=== PATIENT | male | born 1945 | race Caucasian/White ===

== ENCOUNTER 2018-05-20 20:40 | Inpatient (IN) | payer MEDICARE, OTHER ==
[~2018-05-20] VITALS: Ht 177.8 cm; Wt 70.5 kg
[2018-05-20] MEDS ORDERED: IV NORMAL SALINE 500 ML BAG IV ONE (21:00)
[2018-05-20 21:11] LABS: BASOPHILS % (AUTO) 0.2 % (0.0-2.0); EOSINOPHILS # (AUTO) 0.3 K/uL (0.0-0.7); HEMATOCRIT 22.7 % (36.7-47.1); LYMPHOCYTES # (AUTO) 0.7 K/uL (20.0-40.0); LYMPHOCYTES % (AUTO) 6.3 % (20.5-51.5); MEAN CORPUSCULAR HEMOGLOBIN 22.3 uug (23.8-33.4); MEAN CORPUSCULAR HGB CONC 32 g/dL (32.5-36.3); MEAN CORPUSCULAR VOLUME 70.8 fL (73.0-96.2); MONOCYTES # (AUTO) 0.8 K/uL (2.0-10.0); MONOCYTES % (AUTO) 7.3 % (0.0-11.0); NEUTROPHILS # (AUTO) 9.3 K/uL (1.8-8.9); NEUTROPHILS % (AUTO) 83.2 % (38.5-71.5); PLATELET COUNT (AUTO) 377 K/uL (152-348); RED BLOOD CELL COUNT(AUTO) 3.21 MIL/uL (4.06-5.63); WHITE BLOOD COUNT (AUTO) 11.2 K/uL (3.6-10.2)
--- NOTE | 2018-05-20 21:12 | NUR ---
PT IN ROUTE TO CT IN [facility] WITH TRANSPORTER
[2018-05-20 21:18] LABS: HEMOGLOBIN 7.2 g/dL (12.5-16.3)
[2018-05-20 21:19] LABS: CARBON DIOXIDE 27 mmol/L (21-32); CHLORIDE 105 mmol/L (98-107); CREATININE 1.3 mg/dL (0.6-1.3); GLUCOSE 99 mg/dL (74-106); POTASSIUM 3.7 mmol/L (3.5-5.1); UREA NITROGEN, BLOOD 21 mg/dL (7-18)
[2018-05-20 21:24] LABS: ALANINE AMINOTRANSFERASE 32 U/L (16-63); ALKALINE PHOSPHATASE 66 U/L (50-136); ASPARTATE AMINOTRANSFERASE 15 U/L (15-37); BILIRUBIN,DIRECT 0.1 mg/dL (0.0-0.2); BILIRUBIN,TOTAL 0.4 mg/dL (0.2-1.0); TOTAL PROTEIN, SERUM 6.2 g/dL (6.4-8.2)
--- NOTE | 2018-05-20 21:35 | NUR ---
PT RETURNS FROM CT IN [facility] WITH TRANSPORTER
[2018-05-20 21:43] LABS: BAND % (MANUAL) 3 % (0-10); EOSINOPHILS % (MANUAL) 4 % (0-8); LYMPHOCYTES % (MANUAL) 7 % (20-40); MONOCYTES % (MANUAL) 5 % (2-10); NEUTROPHILS % (MANUAL) 81 % (42-75)
--- NOTE | 2018-05-20 22:07 | NUR ---
REPORT GIVEN TO TELEMETRY NURSE, JULIEN COPELAND
[2018-05-20 22:30] VITALS: BP 112/56
--- NOTE | 2018-05-20 22:30 | NUR ---
RECEIVED REPORT FROM ER NURSE, JULIEN MARCOS. PT ARRIVED ON TELE FLOOR VIA GURNEY. NSR ON TELE. PT STABLE AT THIS TIME. NO COMPLAINTS OF PAIN, C/P, SOB, N/V. WILL CONTINUE TO MONITOR.
--- NOTE | 2018-05-20 22:30 | NUR ---
Pt. admitted to TELEMETRY, under care of Dr. CROFT Belongs List completed
--- NOTE | 2018-05-20 23:00 | NUR ---
MD aware of H/H levels: 7.2/22.7 (L). New orders placed. Will closely monitor.
[2018-05-20 23:58] VITALS: BP_SYST 107; BP_SYST 117; BP_SYST 121; BP_DIAS 55; BP_DIAS 56; BP_DIAS 61
[2018-05-20] MEDS ORDERED: IV NS 1000 ML 1,000 ML IV PRN (23:58)
[2018-05-21] VITALS: BP 107/55
[2018-05-21] MEDS ORDERED: ACETAMINOPHEN 325 MG TABLET PO PRN
[2018-05-21] MEDS ORDERED: ONDANSETRON 4 MG/2 ML VIAL IV PRN
[2018-05-21] MEDS ORDERED: Z GUARD REMEDY PASTE 57 GM TUBE TOP PRN
[2018-05-21] MEDS ORDERED: MAGNESIUM HYDROXIDE 30 ML LIQUID UDC PO PRN
[2018-05-21 00:40] LABS: *OCCULT BLOOD STOOL NEGATIVE (NEGATIVE)
[2018-05-21 04:00] VITALS: BP 102/51
--- NOTE | 2018-05-21 05:41 | NUR ---
No changes t/o shift. Slept t/o shift. Remains A/O x 4. Denies pain or SOB. TELE Sinus Rhythm. IVF infusing on the left hand. Stool/Urine and MRSA swab collected and sent to lab. Skin intact. Noted right Arm surgery incision covered in ENEIDA bandage. Pictures taken and filled to chart. No signs of infection. Fall precautions observed. Room is left clutter free. Bed in low and locked position. Afebrile. All meds given as ordered. All needs met.
[2018-05-21 07:10] LABS: BASOPHILS # (AUTO) 0.1 K/uL (0.0-8.0); BASOPHILS % (AUTO) 0.8 % (0.0-2.0); EOSINOPHILS # (AUTO) 0.3 K/uL (0.0-0.7); EOSINOPHILS % (AUTO) 2.9 % (0.0-7.0); HEMATOCRIT 25.5 % (36.7-47.1); HEMOGLOBIN 7.9 g/dL (12.5-16.3); LYMPHOCYTES # (AUTO) 0.7 K/uL (20.0-40.0); LYMPHOCYTES % (AUTO) 5.7 % (20.5-51.5); MEAN CORPUSCULAR HEMOGLOBIN 22.1 uug (23.8-33.4); MEAN CORPUSCULAR HGB CONC 31 g/dL (32.5-36.3); MONOCYTES % (AUTO) 8.4 % (0.0-11.0); NEUTROPHILS # (AUTO) 9.6 K/uL (1.8-8.9); NEUTROPHILS % (AUTO) 82.2 % (38.5-71.5); PLATELET COUNT (AUTO) 477 K/uL (152-348); RED BLOOD CELL COUNT(AUTO) 3.58 MIL/uL (4.06-5.63); WHITE BLOOD COUNT (AUTO) 11.6 K/uL (3.6-10.2)
[2018-05-21 07:26] LABS: ALANINE AMINOTRANSFERASE 34 U/L (16-63); ALKALINE PHOSPHATASE 76 U/L (50-136); ASPARTATE AMINOTRANSFERASE 15 U/L (15-37); BILIRUBIN,TOTAL 0.3 mg/dL (0.2-1.0); CARBON DIOXIDE 26 mmol/L (21-32); CHLORIDE 109 mmol/L (98-107); CHOLESTEROL 125 mg/dL (<200); CREATININE 1.2 mg/dL (0.6-1.3); GLUCOSE 95 mg/dL (74-106); HDL CHOLESTEROL 36 mg/dL (40-60); PHOSPHOROUS 3.3 mg/dL (2.5-4.9); POTASSIUM 4.1 mmol/L (3.5-5.1); TOTAL PROTEIN, SERUM 6.4 g/dL (6.4-8.2); TRIGLYCERIDES 57 MG/DL (30-150); UREA NITROGEN, BLOOD 26 mg/dL (7-18)
[2018-05-21 07:33] LABS: THYROID STIMULATING HORMONE 1.997 mIU/mL (0.358-3.740)
[2018-05-21 08:03] LABS: EOSINOPHILS % (MANUAL) 1 % (0-8); LYMPHOCYTES % (MANUAL) 7 % (20-40); MONOCYTES % (MANUAL) 9 % (2-10); NEUTROPHILS % (MANUAL) 83 % (42-75)
[2018-05-21 10:00] VITALS: BP_SYST 108; BP_SYST 96; BP_SYST 98; BP_DIAS 45; BP_DIAS 47; BP_DIAS 50
[2018-05-21] MEDS ORDERED: IV NORMAL SALINE 500 ML IV ONE (11:45)
[2018-05-21 12:00] VITALS: BP_SYST 102; BP_SYST 105; BP_SYST 120; BP_DIAS 50; BP_DIAS 55; BP_DIAS 59
--- NOTE | 2018-05-21 12:20 | NUR ---
SEEN AND EXAMINED BY DR NORRIS CROFT. INFORMED MD REGARDING VITALS FROM ORTHOSTATIC HYPOTENSION MONITORING. RECEIVED ORDER FROM MD TO START ON 500 CC NS BOLUS AND TO RESUME IVF NS AND INCREASE RATE TO 100 CC/HR AFTER BOLUS ADMINISTRATION. SAFETY MEASURES DISCUSSED WITH PATIENT. ADVISED PT TO STAY IN BED AND LIMIT SUDDEN CHANGE OF POSITION. WILL REPEAT ORTHOSTATIC HYPOTENSION MONITORING AFTER BOLUS ADMINISTRATION.
[2018-05-21 13:32] LABS: IRON, SERUM 14 ug/dL (50-175)
[2018-05-21 13:46] LABS: FERRITIN 22 ng/mL (26-388)
[2018-05-21] MEDS: IV NS 1000 ML 1,000 ML IV PRN (14:34)
[2018-05-21 15:41] VITALS: BP 115/55
--- NOTE | 2018-05-21 18:05 | NUR ---
Nutrition consult received for anemia. Chart reviewed. Spoke with patient regarding dietary habits that may contribute to anemia. Hgb is low, iron panel is low. Provided information packet on iron deficiency anemia with food lists and meal pattern to treat anemia. Discussed food options. Handout is from the [employer] Nutrition Care Manual. Patient showed understanding, stated wants to take iron supplements. RD will remain available for any further questions. Addendum: 05/21/18 at [address] Amended: Links added.
--- NOTE | 2018-05-21 19:17 | NUR ---
PATIENT RESTING COMFORTABLY IN BED. NO SOB, DENIES CHEST PAIN. SAFETY MEASURE MAINTAINED AT ALL TIMES.
[2018-05-21 20:00] VITALS: BP 103/48
--- NOTE | 2018-05-21 20:00 | NUR ---
RECEIVED PATIENT ASLEEP IN BED. NO RESP. DISTRESS NOTED. IVF INFUSING WELL TO LEFT HAND #18 GAUGE. BED ALARM ON FOR SAFETY. CALL LIGHT IN REACH. ALL NEEDS ATTENDED. WILL CONTINUE TO MONITOR AND ASSESS.
--- NOTE | 2018-05-21 21:00 | NUR ---
PATIENT AWAKE IN BED, WATCHING TV. PATIENT IS A/O X4. DENIES PAIN OR DISCOMFORT. DENIES ANY FEELINGS OF DIZZINESS. NO RESP. DISTRESS NOTED. CALL LIGHT IN REACH. WILL CONTINUE TO MONITOR.
[2018-05-22] MEDS: IV NS 1000 ML 1,000 ML IV PRN (00:28)
[2018-05-22 03:30] VITALS: BP 115/61
--- NOTE | 2018-05-22 05:37 | NUR ---
No changes t/o the rest of the shift. Endorsed patient at 0500 from [facility]. IVF infusing on the left hand. Vital signs stable. Safety and comfort measures maintained t/o shift. Room kept clutter free. Bed in low and locked position. All meds given as ordered. All needs met.
[2018-05-22 06:47] LABS: CARBON DIOXIDE 20 mmol/L (21-32); CHLORIDE 111 mmol/L (98-107); CREATININE 0.8 mg/dL (0.6-1.3); GLUCOSE 76 mg/dL (74-106); MAGNESIUM 1.5 mg/dL (1.8-2.4); POTASSIUM 3.1 mmol/L (3.5-5.1); UREA NITROGEN, BLOOD 17 mg/dL (7-18)
[2018-05-22 07:25] LABS: BASOPHILS # (AUTO) 0.1 K/uL (0.0-8.0); EOSINOPHILS # (AUTO) 0.3 K/uL (0.0-0.7); MEAN CORPUSCULAR VOLUME 71.6 fL (73.0-96.2); MONOCYTES # (AUTO) 0.6 K/uL (2.0-10.0)
[2018-05-22 07:31] LABS: BASOPHILS % (AUTO) 1.4 % (0.0-2.0); EOSINOPHILS % (AUTO) 4.6 % (0.0-7.0); LYMPHOCYTES # (AUTO) 0.5 K/uL (20.0-40.0); MEAN CORPUSCULAR HGB CONC 34 g/dL (32.5-36.3); MONOCYTES % (AUTO) 8.3 % (0.0-11.0); NEUTROPHILS # (AUTO) 5.4 K/uL (1.8-8.9); NEUTROPHILS % (AUTO) 77.7 % (38.5-71.5); PLATELET COUNT (AUTO) 380 K/uL (152-348); RED BLOOD CELL COUNT(AUTO) 2.92 MIL/uL (4.06-5.63)
[2018-05-22 07:32] LABS: WHITE BLOOD COUNT (AUTO) 6.9 K/uL (3.6-10.2)
[2018-05-22 07:38] LABS: HEMATOCRIT 20.9 % (36.7-47.1)
--- NOTE | 2018-05-22 08:00 | NUR ---
RECEIVED PATIENT AWAKE ON BED. AO X3. IV ON L HAND, INTACT AND PATENT. PLAN OF CARE IMPLEMENTED REGARDING FALL PRECAUTION, ANEMIA AND SIGN AND SYMPTOMS OF BLEEDING. SAFETY MEASURES INITIATED. NO SOB, DENIES CHEST PAIN. WILL CONTINUE TO MONITOR.
[2018-05-22 09:03] LABS: BASOPHILS % (MANUAL) 1 % (0-2); EOSINOPHILS % (MANUAL) 4 % (0-8); LYMPHOCYTES % (MANUAL) 7 % (20-40); MONOCYTES % (MANUAL) 6 % (2-10); NEUTROPHILS % (MANUAL) 82 % (42-75)
[2018-05-22] MEDS ORDERED: POTASSIUM CHLORIDE 20 MEQ TAB.PRT.SR PO ONE (10:30)
[2018-05-22] MEDS ORDERED: POTASSIUM PHOSPHATE MM 7.5 MMOL in IV DEXTROSE 5% 100 ML IV ONE (10:30)
[2018-05-22 11:43] VITALS: BP 117/60
[2018-05-22] MEDS: FERROUS SULFATE 325 MG TABEC PO SCH ×2 (12:22→20:47)
[2018-05-22] MEDS: MAGNESIUM SULFATE/D5W 100 ML IV SCH ×2 (12:22→13:25)
[2018-05-22 13:43] LABS: HEMATOCRIT 27.8 % (36.7-47.1); HEMOGLOBIN 8.8 g/dL (12.5-16.3)
[2018-05-22 16:00] LABS: *OCCULT BLOOD STOOL NEGATIVE (NEGATIVE)
[2018-05-22 16:35] VITALS: BP 130/59
[2018-05-22] MEDS ORDERED: RIVAROXABAN 15 MG TABLET PO SCH (18:00)
[2018-05-22 18:39] LABS: *BILIRUBIN,URIN NEGATIVE (NEGATIVE); *BLOOD, URINE NEGATIVE (NEGATIVE); *CLARITY,URINE CLEAR (CLEAR); *COLOR,URINE YELLOW (YELLOW); *KETONES,URINE NEGATIVE (NEGATIVE); *PROTEIN,URINE NEGATIVE (NEGATIVE); *UROBILINOGEN,URINE 0.2 E.U./dl (NORMAL); LEUKOCYTE ESTERASE ,URINE NEGATIVE (NEGATIVE); NITRITE, URINE NEGATIVE (NEGATIVE); PH,URINE 5.5 (5.0-8.0); UGLUCOSE NEGATIVE (NEGATIVE)
--- NOTE | 2018-05-22 18:48 | NUR ---
PATIENT REMAINED COMFORTABLY IN BED. NO SIGNS OF RESPIRATORY DISTRESS. INSTRUCTIONS GIVEN ON BLEEDING PRECAUTIONS. PATIENT VERBALIZED UNDERSTANDING. SAFETY MEASURES MAINTAINED AT ALL TIMES.
[2018-05-22 18:52] LABS: BACTERIA,URINE FEW /HPF (NONE SEEN); MUCUS,URINE FEW /LPF (0-FEW); WBC,URINE 0-3 /HPF (0-3)
--- NOTE | 2018-05-22 20:00 | NUR ---
PT RECEIVED ALERT AND AWAKE. AWARE OF PLAN OF CARE. NO S/S OF ACUTE DISTRESS AT THIS TIME. DENIES PAIN. PT REMINDED NOT TO MASSAGE OR APPLY PRESSURE ON RIGHT ARM. VITAL SIGNS WNL. PER GI DR CORNELIUS, PT UNABLE TO RECEIVE ENDOSCOPY DUE TO START OF XARELTO. SAFE ENVIRONMENT IMPLEMENTED AT ALL TIMES. WILL CONTINUE TO MONITOR CLOSELY
[2018-05-22 20:13] VITALS: BP 123/55
[2018-05-23 04:38] VITALS: BP 112/50
--- NOTE | 2018-05-23 06:48 | NUR ---
IV NOTED TO BE LEAKING, NEW IV ACCESS RESTARTED AND NOTED TO BE PATENT AND FLUSHING WELL. NO S/S OF DISTRESS NOTED AT THIS TIME. SAFETY MEASURES IMPLEMENTED AT ALL TIMES. WILL ENDORSE ACCORDINGLY.
[2018-05-23] MEDS: FERROUS SULFATE 325 MG TABEC PO SCH (08:00)
[2018-05-23] MEDS ORDERED: CALCIUM CITRATE 950MG TAB PO SCH (10:30)
[2018-05-23 11:05] LABS: BASOPHILS # (AUTO) 0.2 K/uL (0.0-8.0); BASOPHILS % (AUTO) 1.8 % (0.0-2.0); EOSINOPHILS # (AUTO) 0.4 K/uL (0.0-0.7); EOSINOPHILS % (AUTO) 5.1 % (0.0-7.0); HEMATOCRIT 26.7 % (36.7-47.1); HEMOGLOBIN 8.5 g/dL (12.5-16.3); LYMPHOCYTES # (AUTO) 0.6 K/uL (20.0-40.0); LYMPHOCYTES % (AUTO) 6.9 % (20.5-51.5); MEAN CORPUSCULAR HEMOGLOBIN 22.6 uug (23.8-33.4); MEAN CORPUSCULAR HGB CONC 32 g/dL (32.5-36.3); MEAN CORPUSCULAR VOLUME 71.2 fL (73.0-96.2); MONOCYTES # (AUTO) 0.7 K/uL (2.0-10.0); NEUTROPHILS # (AUTO) 6.3 K/uL (1.8-8.9); NEUTROPHILS % (AUTO) 77.2 % (38.5-71.5); PLATELET COUNT (AUTO) 506 K/uL (152-348); RED BLOOD CELL COUNT(AUTO) 3.75 MIL/uL (4.06-5.63); WHITE BLOOD COUNT (AUTO) 8.2 K/uL (3.6-10.2)
[2018-05-23 11:38] LABS: ALANINE AMINOTRANSFERASE 25 U/L (16-63); ALKALINE PHOSPHATASE 75 U/L (50-136); ASPARTATE AMINOTRANSFERASE 12 U/L (15-37); BILIRUBIN,TOTAL 0.3 mg/dL (0.2-1.0); CARBON DIOXIDE 25 mmol/L (21-32); CHLORIDE 106 mmol/L (98-107); GLUCOSE 97 mg/dL (74-106); PHOSPHOROUS 2.4 mg/dL (2.5-4.9); TOTAL PROTEIN, SERUM 6.1 g/dL (6.4-8.2); UREA NITROGEN, BLOOD 14 mg/dL (7-18)
[2018-05-23 11:55] VITALS: BP 110/60
[2018-05-23] MEDS ORDERED: NEUTRA PHOS PACKET PO ONE (12:30)
[2018-05-23] MEDS ORDERED: RIVA15TA PO (12:42)
[2018-05-23] MEDS ORDERED: FERR325T28 PO (12:42)
--- NOTE | 2018-05-23 14:10 | NUR ---
Patient discharged to home. Discharge instructions/teachings provided, pt verbalized understanding. Patient stated he will set up his own follow up appt with PCP. No belonging list to account for, pt's family brought belongings home. Prescription provided. IV access removed.
--- NOTE | 2018-05-23 14:55 | NUR ---
Patient left the unit ambulatory accompanied by brother. Patient is alert, in no distress. ID band removed.
[2018-05-23 15:23] VITALS: BP 106/64
== END 2018-05-23 15:00 | disposition home or self-care (01) | DRG 73 ==
LOC: ER 20:42 → TELE 22:13 → MED 05-21 17:20
PROVIDERS: ADMIT Nurse Practitioner Acute Care; ATTEND Nurse Practitioner Acute Care
DX: G90.8 Other disorders of autonomic nervous system (principal); N17.0 Acute kidney failure with tubular necrosis; E44.0 Moderate protein-calorie malnutrition; I82.621 Acute embolism and thrombosis of deep veins of right upper extremity; E86.0 Dehydration; Z68.22 Body mass index [BMI] 22.0-22.9, adult; N40.0 Benign prostatic hyperplasia without lower urinary tract symptoms; Z95.0 Presence of cardiac pacemaker; I08.1 Rheumatic disorders of both mitral and tricuspid valves; E83.51 Hypocalcemia; E83.39 Other disorders of phosphorus metabolism; E83.42 Hypomagnesemia; D50.9 Iron deficiency anemia, unspecified; I95.2 Hypotension due to drugs; T44.6X5A Adverse effect of alpha-adrenoreceptor antagonists, initial encounter; Y92.011 Dining room of single-family (private) house as the place of occurrence of the external cause; E87.6 Hypokalemia; Z87.81 Personal history of (healed) traumatic fracture; Z98.890 Other specified postprocedural states
CPT/HCPCS: 36415; 70030-TC; 70450; 71045; 82533; 83550; 83735; 84100; 84443; 85018; 85025; 85730; 86850; 86900; 86901; 87086; 93005; 93307; 93880; A4663; J3475; J3490; J7030; J7040; J7060